=== PATIENT | female | born 1955 | race Caucasian/White ===

== ENCOUNTER 2018-10-24 09:36 | Outpatient (CLI) | END 2018-10-24 09:37 | disposition home or self-care (01) | LOC: RAD 09:36 → LAB 09:37 | PROVIDERS: ATTEND Internal Medicine Medical Oncology | DX: C54.1 Malignant neoplasm of endometrium (principal); M54.9 Dorsalgia, unspecified; M89.9 Disorder of bone, unspecified; T45.1X5D Adverse effect of antineoplastic and immunosuppressive drugs, subsequent encounter | CPT/HCPCS: 36415; 80053; 85025 ==